=== PATIENT | male | born 1955 | race Caucasian/White ===

== ENCOUNTER 2017-06-29 18:14 | Emergency (ER) | payer OTHER ==
[2017-06-29 18:25] VITALS: BP 172/93
[2017-06-29] MEDS ORDERED: BUFFERED LIDOCAINE 10 ML SYRINGE ONE (18:33)
[2017-06-29] MEDS ORDERED: HYDROcod/ACETAM 5/325 MG TABLET PO STA (18:46)
--- NOTE | 2017-06-29 18:47 | ED Physician Documentation ---
PD HPI HEAD INJURY - Stated complaint Stated Complaint: HEAD INJ - Chief complaint Chief Complaint: Laceration - History obtained from History obtained from: Patient, Family - History of Present Illness Mechanism of head injury: Other (This is a 62-year-old gentleman who is up-to- date on tetanus, they travel around in their RV all year. He was underneath working on something and he stood up quickly and impacted his head heavily into a piece of metal with a laceration over the right parietal area and moderate headache without loss of consciousness.) Review of Systems Constitutional: reports: Reviewed and negative Nose: reports: Reviewed and negative Cardiac: reports: Reviewed and negative Respiratory: reports: Reviewed and negative GI: reports: Nausea. denies: Vomiting PD PAST MEDICAL HISTORY - Present Medications Home Medications: Ambulatory Orders Medication Instructions Recorded Confirmed No Known Home Medications [No 06/29/17 06/29/17 Known Home Medications] - Allergies Allergies/Adverse Reactions: Allergies Allergy/AdvReac Type Severity Reaction Status Date / Time No Known Drug Allergies Allergy Verified 06/29/17 18:23 PD ED PE NORMAL - Vitals Vital signs reviewed: Yes - General General: Alert and oriented X 3, No acute distress - HEENT HEENT: PERRL, EOMI, Other (There are 2, 2 cm lacerations in the right parietal area.) - Neck Neck: Supple, no meningeal sign, No bony TTP - Neuro Neuro: Alert and oriented X 3, cloth bolt bander 2-12 intact, No motor deficit, No sensory deficit, Normal speech GCS Score: 15 - Psych Psych: Normal mood, Normal affect Results - Vitals Vitals: Vital Signs - 24 hr 06/29/17 18:20 Temperature 36.9 C Heart Rate 55 L Respiratory 16 Rate Blood Pressure 172/93 H O2 Saturation 99 Oxygen O2 Source Room air - Rads (name of study) CT Head Radiology: EMP read contemporaneously (NAD) Procedures - Laceration (location) scalp Length in cm: 4 Wound type: Linear (2 x 2cm) Anesthesia: Lidocaine 1%, With bicarb Wound Preparation: Betadine, Irrigated copiously NS Skin layer closure: Other (Closed with running 5-0 Vicryl) Other: Tetanus UTD Complexity: Simple PD MEDICAL DECISION MAKING - ED course ED course: The patient and family were counseled as to the diagnosis and need for follow- up. I counseled the patient with regard to signs and symptoms that would necessitate an urgent reevaluation in the emergency department. They understand they are welcome to return at any time if worse or if not improving as expected. This document was made in part using voice recognition software. While efforts are made to proofread this documents, sound alike and grammatical errors may occur. Departure - Departure Disposition: 01 Home, Self Care Clinical Impression: Laceration Head injury Qualifiers: Encounter type: initial encounter Qualified Code(s): S09.90XA - Unspecified injury of head, initial encounter Condition: Good Record reviewed to determine appropriate education?: Yes Instructions: ED Laceration Facial Sutr Tape, ED Head Injury Closed Comments: If the sutures have not fallen out in the next 10 days, follow-up with your doctor for removal. Your blood pressure was elevated today on check into the emergency department. This does not mean that you have hypertension, it is a common phenomenon to come to the emergency department and have elevated blood pressure. I recommend that she see your primary care physician within the week to have it rechecked when you are feeling better.
[2017-06-29] MEDS ORDERED: HYDROcod/ACETAM 5/325 MG TABLET ONE (18:53)
--- NOTE | 2017-06-29 19:54 | CT Preliminary Report ---
Exam: CT Head W/O IMPRESSION: No acute intracranial abnormality identified. [facility] SITE ID: [id number]
--- NOTE | 2017-06-29 19:56 | CT Report ---
EXAM: CT HEAD EXAM DATE: 06/29/2017 07:30 PM. CLINICAL HISTORY: Head injury to top of head with swelling. COMPARISON: None. TECHNIQUE: Multiaxial CT images were obtained from the foramen magnum to the vertex. IV contrast: Non e. Reformats: Coronal. In accordance with CT protocol optimization, one or more of the following dose reduction techniques w ere utilized for this exam: automated exposure control, adjustment of mA and/or KV based on patient s ize, or use of iterative reconstructive technique. FINDINGS: Parenchyma: No intraparenchymal hemorrhage. No evidence of mass, midline shift, or CT findings of inf arction. Dobbins-white differentiation is distinct. Extraaxial Spaces: Normal for age. No subdural or epidural collections identified. Ventricles: Normal in size and position. Sinuses: Imaged paranasal sinuses, orbits, and mastoids show no significant abnormality. Bones: No evidence of fracture or calvarial defect. Other: Mild right frontal scalp soft tissue swelling. IMPRESSION: No acute intracranial abnormality identified. [facility] Referring Provider Line: [phone] SITE ID: [id number]
== END 2017-06-29 20:10 | disposition home or self-care (01) ==
LOC: ED 18:14
DX: S01.01XA Laceration without foreign body of scalp, initial encounter (principal); W22.09XA Striking against other stationary object, initial encounter; R03.0 Elevated blood-pressure reading, without diagnosis of hypertension
CPT/HCPCS: 12002; 70450; 99283; A9270